=== PATIENT | female | born 1945 | race African-American/Black ===

== ENCOUNTER 2023-06-02 11:22 | Emergency (ER) | payer OTHER ==
[~2023-06-02] VITALS: Ht 165.1 cm; Wt 68.0 kg
[~2023-06-02 11:22] MED LIST: DILANTIN; LISINOPRIL; OMEPRAZOLE
[2023-06-02 11:28] VITALS: O2SAT 98
[2023-06-02 12:19] LABS: BASOPHILS % 1.1 % (0.0-2.0); EOSINOPHILS % 0.9 % (0.0-5.0); HEMATOCRIT. 33.6 % (36.0-48.0); HEMOGLOBIN. 11.1 g/dL (12.0-16.0); LYMPHOCYTES % 10.1 % (20.0-50.0); MEAN CORPUSCULAR HEMOGLOBIN 31.8 pg (28.0-32.0); MEAN CORPUSCULAR HGB CONC 33.1 g/dL (31.0-37.0); MEAN CORPUSCULAR VOLUME 96.2 fL (81.0-99.0); MONOCYTES % 6.1 % (2.0-8.0); NEUTROPHILS % 81.8 % (40.0-76.0); PLATELET 394 x1000/uL (130-400); RED CELL DISTRIBUTION WIDTH 14.7 % (11.6-14.6); WHITE BLOOD COUNT 10.5 x1000/uL (4.5-11.0)
[2023-06-02 12:22] LABS: CARBON DIOXIDE 26 mEq/L (21-32); CHLORIDE 101 mEq/L (98-107); POTASSIUM 3.5 mEq/L (3.5-5.1); SODIUM 135 mEq/L (136-145)
[2023-06-02 12:23] LABS: CALCIUM 9.8 mg/dL (8.7-10.4)
[2023-06-02 12:28] LABS: CREATININE 0.8 mg/dL (0.6-1.0); GLUCOSE 97 mg/dL (70-105); UREA NITROGEN BLOOD 12 mg/dL (9-23)
[2023-06-02 12:29] LABS: ALANINE AMINOTRANSFERASE 10 IU/L (10-49); ASPARTATE AMINOTRANSFERASE 20 IU/L (<34)
[2023-06-02 12:30] LABS: ALBUMIN 4.6 g/dL (3.2-4.8); BILIRUBIN TOTAL 0.3 mg/dL (0.1-1.0); PROTEIN TOTAL 9.7 g/dL (6.0-8.3)
[2023-06-02 12:41] LABS: ETHANOL BLOOD < 10 mg/dL (<10); TROPONIN I HIGH SENSITIVITY < 4 ng/L (3.0-34)
[2023-06-02] MEDS ORDERED: HYDRALAZINE HCL 50MG TABLET PO ONE (15:00)
[2023-06-02] MEDS: HYDRALAZINE HCL 25MG TABLET PO NR (15:56)
[2023-06-02] MEDS ORDERED: LABETALOL HCL VIAL 20 MG/4 ML VIAL IV ONE (16:45)
[2023-06-02 16:58] LABS: CLARITY URINE CLEAR (CLEAR); COLOR URINE YELLOW (YELLOW); GLUCOSE URINE NEGATIVE (NEGATIVE); KETONES URINE 1+ (NEGATIVE); LEUKOCYTE ESTERASE URINE NEGATIVE (NEGATIVE); NITRITE URINE NEGATIVE (NEGATIVE); OCCULT BLOOD URINE NEGATIVE (NEGATIVE); PH URINE 7.5 (4.5-8.0); PROTEIN URINE NEGATIVE (NEGATIVE); UROBILINOGEN URINE 0.2 E.U./dL (0.2-1.0)
[2023-06-02] MEDS: LABETALOL 5MG/ML SYR 20 MG/4 ML SYRINGE IV NR (17:01)
[2023-06-02 17:14] LABS: *AMPHETAMINES SCREEN URINE NEGATIVE (NEGATIVE); *BARBITURATES SCREEN URINE NEGATIVE (NEGATIVE); *BENZODIAZEPINES SCREEN URINE NEGATIVE (NEGATIVE); *COCAINE SCREEN URINE NEGATIVE (NEGATIVE); METHADONE URINE SCREEN NEGATIVE (NEGATIVE); OPIATES URINE SCREEN NEGATIVE (NEGATIVE)
[2023-06-02 17:15] LABS: CANNABINOID URINE SCREEN NEGATIVE (NEGATIVE); ECSTASY MDMA SCREEN URINE NEGATIVE (NEGATIVE); PHENCYCLIDINE URINE SCREEN NEGATIVE (NEGATIVE)
[2023-06-02] MEDS: HYDRALAZINE 20MG/ML VIAL IV PRN (19:06)
[2023-06-02] MEDS ORDERED: ALBU18HF2 PO (19:08)
[2023-06-02] MEDS ORDERED: HYDR50TA39 PO (19:08)
[2023-06-02] MEDS ORDERED: TIOT4MIS2 IH (19:08)
[2023-06-02] MEDS ORDERED: PHEN50TA4 PO (19:08)
[2023-06-02] MEDS ORDERED: HYDR25TA PO (19:08)
[2023-06-02] MEDS ORDERED: LOSA100T33 PO (19:08)
[2023-06-02] MEDS ORDERED: OMEP20CA14 PO (19:08)
[2023-06-02] MEDS ORDERED: GABA-532 PO (19:08)
[2023-06-02] MEDS ORDERED: ATOR40TA70 PO (19:08)
[2023-06-02] MEDS ORDERED: FLUT1BLS10 PO (19:08)
[2023-06-02] MEDS ORDERED: DULO30CA52 PO (19:08)
[2023-06-02 20:08] VITALS: BP 184/78; PULSE 78; RESP 14; TEMP 98.1
== END 2023-06-02 19:35 | disposition short-term general hospital (02) ==
LOC: ER 11:29 → CANBEDREQ 16:38 → ER 19:35 → CANBEDREQ 20:40
DX: R41.82 Altered mental status, unspecified (principal); J45.909 Unspecified asthma, uncomplicated; F32.A Depression, unspecified; I10 Essential (primary) hypertension; Z88.0 Allergy status to penicillin; Z88.2 Allergy status to sulfonamides; Z88.8 Allergy status to other drugs, medicaments and biological substances
CPT/HCPCS: 80053; 80305; 81003; 80320; 83690; 85025; 84484; 36415; 70450; 93005; 96374; 96375; 99285; J0360; J3490; G0480